=== PATIENT | male | born 1965 | race Caucasian/White ===

== ENCOUNTER 2016-11-26 11:35 | Observation (INO) | payer OTHER ==
[2016-11-26] MEDS ORDERED: ACETAMINOPHEN 325 MG TABLET PO PRN (11:45)
[2016-11-26] MEDS ORDERED: ONDANSETRON HCL/PF 2 MG/ML VIAL IV PRN (11:45)
[2016-11-26 12:08] LABS: Hematocrit 43.1 % (42.0-52.0); Hemoglobin 14.6 gm/dL (13.5-18.0); Mean Corpuscular Hemoglobin 28.5 pg (27-31); Mean Corpuscular Hgb Conc 33.9 g/dl (32-36); Mean Platelet Volume 9.8 fl (6.0-9.5); Neutrophil % 71.1 % (42-75.0); Platelet Count 241 K/mm3 (150-450); Red Blood Count 5.13 M/mm3 (4.7-6.0); Red Cell Distribution Width 13.1 % (11.5-14.0); White Blood Count 8.5 K/mm3 (4.0-10.5)
[2016-11-26 12:20] LABS: Albumin * 4.1 gm/dl (3.4-5.0); Anion Gap 10.8 mmol/L (6.8-13.8); BUN/Creatinine Ratio 11.9 (9.0-21.6); Bilirubin, Total 0.7 mg/dL (0.0-1.1); Ca. Corrected For Albumin 9.5 mg/dL (8.4-10.2); Calcium * 9.9 mg/dL (7.9-10.9); Carbon Dioxide 30.7 mmol/L (24-32.6); Potassium 4.5 mmol/L (3.4-4.6); Total Protein 7.6 gm/dL (6.2-8.2)
[2016-11-26] MEDS: DEXTROSE 5%-0.5 NORMAL SALINE 1,000 ML IV PRN (12:33)
[2016-11-26] MEDS ORDERED: DIATRIZOATE MEGLU/DIATRIZO SOD 30 ML BTL PO ONE (13:17)
[2016-11-26] MEDS: HYDROmorphone HCL 1 MG/ML DISP.SYRIN IV PRN ×2 (13:48→20:32)
[2016-11-26 14:01] LABS: Urine Bilirubin Negative (NEGATIVE); Urine Blood Negative /ul (NEGATIVE); Urine Ketone Negative (NEGATIVE); Urine Nitrite Negative (NEGATIVE); Urine Protein Negative (NEGATIVE); Urine Specific Gravity <=1.005 SP.GR. (1.005-1.030); Urine Urobilinogen Normal (NORMAL); Urine pH 5.5 pH (5.0-7.0)
[2016-11-26 14:53] LABS: Urine Appearance Clear; Urine Bacteria None Seen; Urine Color Yellow; Urine RBC None Seen /hpf (0-5); Urine WBC None Seen /hpf (0-5)
[2016-11-26] MEDS ORDERED: MAGNESIUM HYDROXIDE 30 ML UDC PO ONE (17:00)
[2016-11-27] MEDS: DEXTROSE 5%-0.5 NORMAL SALINE 1,000 ML IV PRN (02:36)
--- NOTE | 2016-11-27 07:40 | PN ---
Progess Note - Interim Narrative: 11/27/16 07:37 Has had 2 BM. Continues to have lower abdominal pain from groin towards his LB area. It is now localized to the left side. will do LS xray- consider neuropathic pain from radiculopathy, consider beginning shingles ( no skin lesions so far), consider nerve entrapment syndrome (ilioinguinal/femoral nerve)
[2016-11-27] MEDS ORDERED: NAPROXEN SODIUM 220 MG TABLET PO SCH (09:00)
[2016-11-27] MEDS: GABAPENTIN 100 MG CAPSULE PO SCH ×2 (09:47→16:16)
[2016-11-27 14:33] VITALS: BP 107/67
--- NOTE | 2016-11-27 16:26 | DS ---
(1) Acute bilateral lower abdominal pain Problem: Acute (2) Left groin pain Problem: Acute (3) History of kidney stones Problem: Acute (4) History of pulmonary embolism Problem: Acute Description of Stay: Kenroy Ochoa, is a 51-year-old white male, with previous medical history of kidney stone in the past, pulmonary embolism in the past, who was admitted on because of an acute abdominal pain. The patient woke up around 5:30 in the morning of admission with acute bilateral lower abdominal pain radiating to his back, stabbing and grabbing in character, constant, initially at 4- 5/10 but increasing in intensity to 8/10 when seen in the office . The pain sometimes would make him double up. It was slightly relieved by a sitting position and slightly bent forward. He denied any nausea vomiting diarrhea constipation denied any fever or chills denied any increased frequency or blood in the urine. Denied any recent trauma or lifting of any heavy objects. He was then admitted for observation and further workup. His CBC, CMP were essentially within normal limits. His abdominal x-ray showed mild to moderate stool retention with no evidence of obstruction. His abdominal CT scan of the pelvis as well as of the pelvis showed no evidence of acute intra-abdominal findings. He was started on IV Dilaudid for pain control and was kept nothing by mouth. His diet resumed when his CTS results came back normal. He continued to have pain overnight and the following morning but this time only in his left groin area and left lower quadrant going to his back. Neuropathic pain from radiculopathy, neuropathic pain from beginning shingles, or entrapment nerve syndrome ( ilioinguinal/femral nerves) were considerations. A lumbosacral x-ray ordered this morning showed no evidence of spondylolysis or bulging disc disease however it did show arthritis . He was started on Aleve and gabapentin. His pain has improved. He is going to be discharged and was told that if he ever develops rash or blister-like skin lesions to call us immediately as he needs to be started on antiviral within 48-72 hours of the appearnace. . He will be excuse a released from work tomorrow. Procedures Performed: none Discharge Disposition: Home self care Disposition: Home self-care Condition: Good Discharge Activity: Activity as tolerated Discharge Diet: General/regular food Referrals: Karissa Saldivar MD [Primary Care Provider] - Additional Patient Instructions (free text): Follow up with me in 1 week. Prescriptions (Any new or edited meds): Gabapentin [Neurontin] 100 mg PO Q8H #30 capsule Naproxen Sodium [Aleve] 220 mg PO BID #14 tablet Complete Home Medications List: Complete Home Medication List: Multivitamin [Multiple Vitamins] 1 each PO DAILY 12/09/13 Acetaminophen [Tylenol] 1,000 mg PO Q6H PRN 03/31/14 Aspirin [Aspirin Enteric Coated] 81 mg PO DAILY 11/09/14 Gabapentin [Neurontin] 100 mg PO Q8H #30 capsule 11/27/16 Naproxen Sodium [Aleve] 220 mg PO BID #14 tablet 11/27/16
== END 2016-11-27 17:15 | disposition home or self-care (01) ==
LOC: MS 11:35
PROVIDERS: ADMIT Internal Medicine; ATTEND Internal Medicine
DX: R10.30 Lower abdominal pain, unspecified (principal); R10.32 Left lower quadrant pain; Z87.442 Personal history of urinary calculi
CPT/HCPCS: 36415; 72110; 74020; 74177; 80053; 81001; 82150; 83690; 85025; 85652; 86140; 93005; 96374; 96376; G0378; G0379

== ENCOUNTER 2017-04-28 11:25 | Emergency (ER) | payer OTHER ==
[2017-04-28] MEDS ORDERED: ORPHENADRINE CITRATE 30 MG/ML VIAL IM ONE (12:00)
[2017-04-28] MEDS ORDERED: KETOROLAC TROMETHAMINE 60 MG/2 ML VIAL IM ONE ×2 (12:00→12:06)
--- NOTE | 2017-04-28 12:00 | ERNOTE ---
Back Pain ER HPI Date of Service: 04/28/17 Presenting Symptoms: injury/pain to back Time Seen by Provider: 04/28/17 11:47 Source: patient, family, RN notes reviewed Exam Limitations: no limitations Immunizations: IMMUNIZATION HX Immunizations Up to Date Yes History of Influenza Vaccine Yes Hx Pneumococcal Vaccination Yes Allergies/Adverse Reactions: Allergies venom-honey bee [bee venom (honey bee)] Allergy (Mild, Verified 04/28/17 11:44) Nausea Home Medications: HOME MEDICATIONS Multivitamin [Multiple Vitamins] 1 each PO DAILY 12/09/13 [Last Taken 12/11/13 07:30] Acetaminophen [Tylenol] 1,000 mg PO Q6H PRN 03/31/14 [Last Taken Unknown] Aspirin [Aspirin Enteric Coated] 81 mg PO DAILY 11/09/14 [Last Taken Unknown] Naproxen Sodium [Aleve] 220 mg PO BID #14 tablet 11/27/16 [Last Taken Unknown] Celecoxib [Celebrex] 100 mg PO BID 04/28/17 [Last Taken Unknown] Cyclobenzaprine HCl [Flexeril] 10 mg PO TID PRN #30 tab 04/28/17 [Last Taken Unknown] Gabapentin [Neurontin] 100 mg PO Q8H #30 capsule 04/28/17 [Last Taken Unknown] traMADol HCL [Ultram] 50 mg PO Q6H PRN #30 tablet 04/28/17 [Last Taken Unknown] Narrative: 51 year old male brought to the ED by his for low back pain that began without incident earlier this morning. His pain is in his low back and radiates down the left leg. He reports that his left leg, as well as his left arm, feel like they are asleep. He took gabapentin without improvement. He routinely takes Celebrex. He had a similar episode approximately 6 months ago. This was treated with medications and rest, and resolved. He is currently in physical therapy for right hip pain. Date (Duration): 04/28/17 Time (Timing): 05:30 Timing: Reports: constant Quality/Severity: Reports: severe, aching Location of pain: Reports: lower back, radiating to rt thigh/leg, radiating to lf thigh/leg Recent Injury?: Reports: no Possible Precipitating Factor: Reports: other - Right hip pain and PT Associated Symptoms: Reports: difficulty walking. Denies: fever/chills, sweating, constipation/incontinence, nausea/vomiting, problems urinating, numbess/weakness in legs Prior Treament: Reports: recently seen, treated by physician, similar symptoms before Review of Systems - Review of Systems Constitutional: Absent: recent illness, fever, chills EYE: Present: no symptoms reported ENT: Present: no symptoms reported Respiratory: Absent: shortness of breath, cough Cardiology: Absent: chest pain, edema Gastrointestinal/Abdominal: Absent: nausea, abdominal pain Genitourinary: Absent: frequency, dysuria, hematuria, decreased urinary output Musculoskeletal: Present: back pain, muscle pain, joint pain. Absent: neck pain , joint swelling Skin: Absent: lesions, lumps, change in color Neurological: Present: tingling. Absent: weakness, numbness Endocrine: Present: no symptoms reported Hematologic/Lymphatic: Present: no symptoms reported Psych: Present: no symptoms reported - Patient's Past Medical History Patient History - Medical: Arthritis, Kidney stone, Other Patient History - Cardiac/Respiratory: Angina Patient History - Cancer: No Hx of Cancer Patient History - Surgical Procedures: Appendectomy, Colonoscopy, Total Knee Replacement, T & A, Other Patient History - Other: None - Family History Father Family History - Medical: , No pertinent hx Family History - Cardiac/Respiratory: Cardiac Arrest, Hypertension, Hyperlipidemia, Myocardial Infarction Family History - Cancer: No pertinent family hx Mother Family History - Medical: No pertinent hx, Cataracts Family History - Cardiac/Respiratory: Hypertension, Hyperlipidemia Family History - Cancer: No pertinent family hx - Social History Living Situations: spouse Abuse History: No History of abuse Psych History: No pertinent hx Smoking Status: Never smoker Alcohol Use: none Drug Use: none - Immunizations Immunizations Up to Date: Yes Hx Pneumococcal Vaccination: Yes History of Influenza Vaccine: Yes Physical Exam - Physical Exam General Appearance: Present: wd/wn, alert, mild distress Head Exam: Present: normal inspection Neck: Present: normal inspection, nontender, supple Respiratory: Present: no respiratory distress, normal breath sounds, no accessory muscle use, lungs clear Cardiovascular/Chest: Present: regular rate, rhythm, no murmur Back Exam: Present: vertebral tenderness - Lumbar, with bilateral paraspinal muscle tenderness, decreased range of motion. Absent: CVA tenderness (R), CVA tenderness (L), muscle spasm Extremity Exam: Present: non-tender, no edema, decreased range of motion - Left leg, causes increased back pain Neurological Exam: Present: alert, oriented, normal mood/affect, no motor/ sensory deficits Skin Exam: Present: normal color, warm/dry ED Progress - Results and Orders Patient's Lab Results:: I have reviewed the patient's lab results. - Vital Signs Patient's Vital Signs:: I have reviewed the patient's vital signs. Vital Signs: Vital Signs 04/28/17 11:27 Temperature 36.4 C L Pulse Rate 80 Respiratory 16 Rate Blood Pressure 124/73 O2 Sat by Pulse 99 Oximetry - Progress/Reassessment Chief Complaint: Back Pain Progress:: Improved Progress Note-Subjective: 04/28/17 12:51 Pain has decreased from 02/09 to 11/09. IM Morphine ordered. 04/28/17 13:34 Patient reports that he is feeling a lot better. Appears more comfortable. To restart gabapentin tid and tramadol prn as before. Can use flexeril prn. [facility] if he is not improving in 2-3 days. Departure Clinical Impression: Low back pain radiating to left lower extremity - Departure Disposition: Home Follow Up Needed Condition: Stable Instructions: Back Pain, Adult, Form - Excuse from Work, School, or Physical Activity Additional Instructions: Ice or heat to sore area Activity as tolerated [facility] if you are not improving mid-week Referrals: Karissa Saldivar MD [Primary Care Provider] - Prescriptions: Cyclobenzaprine HCl [Flexeril] 10 mg PO TID PRN #30 tab PRN Reason: MUSCLE SPASMS Gabapentin [Neurontin] 100 mg PO Q8H #30 capsule traMADol HCL [Ultram] 50 mg PO Q6H PRN #30 tablet PRN Reason: Pain
[2017-04-28] MEDS ORDERED: ORPHENADRINE CITRATE 30 MG/ML VIAL ONE (12:06)
[2017-04-28 12:07] LABS: Urine Bilirubin Negative (NEGATIVE); Urine Blood Negative /ul (NEGATIVE); Urine Ketone Negative (NEGATIVE); Urine Nitrite Negative (NEGATIVE); Urine Protein Negative (NEGATIVE); Urine Urobilinogen Normal (NORMAL)
[2017-04-28 12:17] LABS: Urine Appearance Clear; Urine Bacteria TRACE; Urine Color Yellow; Urine RBC None Seen /hpf (0-5); Urine WBC TRACE /hpf (0-5)
[2017-04-28] MEDS ORDERED: MORPHINE SULFATE 10 MG/ML SYRG IM ONE (12:51)
[2017-04-28] MEDS ORDERED: MORPHINE SULFATE 10 MG/ML SYRG ONE (12:54)
[2017-04-28 19:30] VITALS: BP 125/71
== END 2017-04-28 13:50 | disposition home or self-care (01) ==
LOC: ER 11:25
DX: M54.5 Low back pain (principal); M79.605 Pain in left leg; M19.90 Unspecified osteoarthritis, unspecified site